=== PATIENT | male | born 1980 | race Caucasian/White ===

== ENCOUNTER 2018-01-04 21:00 | Emergency (ER) | payer MEDICAID ==
[~2018-01-04] VITALS: Ht 182.9 cm; Wt 87.0 kg
[2018-01-04] MEDS ORDERED: CITA-278 PO (21:19)
[2018-01-04 21:25] VITALS: BP 135/89
== END 2018-01-04 21:27 | disposition home or self-care (01) ==
LOC: ER 21:03
DX: F32.9 Major depressive disorder, single episode, unspecified (principal); Z76.0 Encounter for issue of repeat prescription; Z88.5 Allergy status to narcotic agent
CPT/HCPCS: 99283

== ENCOUNTER 2024-08-29 14:40 | Emergency (ER) | payer MEDICAID ==
[~2024-08-29] VITALS: Ht 182.9 cm; Wt 89.2 kg
[2024-08-29 14:53] VITALS: TEMP 98.2
[2024-08-29] MEDS: oxymetazoline 15 ML nasal spray NS ONE (15:22)
[2024-08-29] MEDS: silver nitrate applicator stick TP ONE (16:46)
[2024-08-29 17:36] VITALS: BP 157/98; PULSE 61; RESP 15; O2SAT 98
== END 2024-08-29 17:43 | disposition home or self-care (01) ==
LOC: ER 14:41
DX: R04.0 Epistaxis (principal); F32.A Depression, unspecified; Z88.6 Allergy status to analgesic agent; Z88.5 Allergy status to narcotic agent
CPT/HCPCS: 99282; 99283